=== PATIENT | female | born 1990 | race African-American/Black ===

== ENCOUNTER 2024-07-15 05:30 | Inpatient (IN) | payer OTHER, SELFPAY ==
[2024-07-15 06:35] VITALS: BMI 30.9
[2024-07-15] MEDS ORDERED: hydrALAZINE 20 MG/ML VIAL SLOW IVP PRN ×2 (07:54→16:14)
[2024-07-15] MEDS ORDERED: Promethazine HCl 25 MG/ML VIAL IM PRN ×3 (07:54→16:14)
[2024-07-15] MEDS ORDERED: Lidocaine 1% (PF) 30 ML VIAL SC PRN (07:54)
[2024-07-15] MEDS ORDERED: Ondansetron PF 4 MG/2 ML Vial IVP PRN ×3 (07:54→16:14)
[2024-07-15] MEDS ORDERED: Methylergonovine 0.2 MG/ML VIAL IM PRN (07:59)
[2024-07-15] MEDS ORDERED: Carboprost 250 MCG/ML AMP IM PRN (07:59)
[2024-07-15] MEDS ORDERED: Misoprostol 200 MCG TAB PR PRN (07:59)
[2024-07-15] MEDS ORDERED: fentaNYL 50 mcg/mL 1 mL Vial SLOW IVP PRN (07:59)
[2024-07-15] MEDS ORDERED: Ibuprofen 800 MG TAB PO PRN (07:59)
[2024-07-15] MEDS ORDERED: Diphenoxylate HCl/Atropine Tablet PO PRN (07:59)
[2024-07-15] MEDS ORDERED: Acetaminophen 500 MG TAB PO PRN (07:59)
[2024-07-15] MEDS ORDERED: HYDROcodone/Acetaminophen 5/325 mg Tablet PO PRN (07:59)
[2024-07-15] MEDS ORDERED: Lactated Ringer's 1,000 ML IV SCH (08:00)
[2024-07-15] MEDS ORDERED: Oxytocin 30 units/NS 500 ML 500 ML IV SCH (08:00)
[2024-07-15 08:35] LABS: Hematocrit 29.7 % (34.9-44.5); Hemoglobin 9.8 g/dL (12.0-15.5); Mean Corpuscular Hemoglobin 27.4 pg (27.0-33.0); Mean Platelet Volume 9.9 fL (7.4-10.4); Platelet Count 331 10x3/uL (150-450); RBC Distribution Width 13.8 % (11.5-14.5); Red Blood Cell (RBC) Count 3.58 10x6/uL (3.90-5.03); White Blood Cell (WBC) Count 8.29 10x3/uL (3.5-10.5)
[2024-07-15] MEDS: Oxytocin 30 units/NS 500 ML 500 ML IV SCH (09:01)
[2024-07-15 09:11] LABS: HBsAg Index 0.24 S/CO (0-0.99); Hep B Surf Ag - L&D Non-Reactive S/CO (NonReactive)
[2024-07-15 09:13] LABS: Syphilis Antibody Nonreactive (Nonreactive); Syphilis Antibody Index 0.06 S/CO (<1.00 Non-Reactive)
[2024-07-15] MEDS: fentaNYL/Ropivacaine Epidural 100 ML ONE (09:39)
[2024-07-15] MEDS ORDERED: Moisturizing Cream (Eucerin) 113 GM JAR TOP PRN (10:05)
[2024-07-15] MEDS ORDERED: Lactated Ringer's 500 ML IV PRN (10:05)
[2024-07-15] MEDS ORDERED: diphenhydrAMINE 50 MG/ML VIAL IVP PRN (10:05)
[2024-07-15] MEDS ORDERED: Naloxone HCl 0.4 mg/ml Vial IVP PRN ×2 (10:05)
[2024-07-15] MEDS ORDERED: ePHEDrine Sulfate 50 MG/10 ML VIAL SLOW IVP PRN (10:05)
[2024-07-15] MEDS ORDERED: fentaNYL 2 mcg/Ropivacaine 0.2% Epidural 100 ML CADD EPIDURAL SCH (10:15)
[2024-07-15] MEDS ORDERED: Communication Order-Pharmacy FS SCH (10:15)
[2024-07-15] MEDS: Acetaminophen 325 MG TAB PO PRN (10:33)
[2024-07-15] MEDS ORDERED: Milk Of Magnesia 30 ML UDCUP PO PRN (16:14)
[2024-07-15] MEDS ORDERED: Preparation H Ointment 28 GM TUBE PR PRN (16:14)
[2024-07-15] MEDS ORDERED: Benzocaine-Menthol 82.5 ML CAN TOP PRN (16:14)
[2024-07-15] MEDS ORDERED: Lanolin Ointment 7 GM TUBE TOP PRN (16:14)
[2024-07-15] MEDS ORDERED: diphenhydrAMINE 25 MG CAP PO PRN (16:14)
[2024-07-15] MEDS ORDERED: Bisacodyl 10 MG SUPP PR PRN (16:14)
[2024-07-15] MEDS: Ibuprofen 800 MG TAB PO SCH (17:38)
[2024-07-15] MEDS: Ferrous Sulfate 325 MG TAB PO SCH (17:39)
[2024-07-15] MEDS: Boostrix 0.5 ML (Tdap) VIAL (>/=7 yrs of age) IM ONE (19:17)
[2024-07-15] MEDS: HYDROcodone/Acetaminophen 5/325 mg Tablet PO PRN (22:57)
[2024-07-15] MEDS: Docusate 100 MG CAP PO SCH (23:07)
[2024-07-16] MEDS: Prenatal Vitamin 1 TAB PO SCH (08:09)
[2024-07-16 10:57] VITALS: BP 96/55; TEMP 97.8
[2024-07-16] MEDS ORDERED: Bupivacaine 0.25% HCL 30 ML VIAL ONE (13:00)
== END 2024-07-16 17:35 | disposition home or self-care (01) | DRG 807 ==
LOC: CSHLD 06:02 → CSHPP 15:45
PROVIDERS: ADMIT Student in an Organized Health Care Education/Training Program; ATTEND Student in an Organized Health Care Education/Training Program
PROC: 10E0XZZ Delivery of Products of Conception, External Approach (ICD-10-PCS; principal; 2024-07-15)
PROC: 0HQ9XZZ Repair Perineum Skin, External Approach (ICD-10-PCS; 2024-07-15)
DX: O70.0 First degree perineal laceration during delivery (principal); Z37.0 Single live birth; Z3A.39 39 weeks gestation of pregnancy
CPT/HCPCS: 51702; 85027; 86762; 86780; 86850; 86900; 86901; 87340; J0665; J2590